=== PATIENT | female | born 1975 | race Caucasian/White ===

== ENCOUNTER 2024-03-18 09:18 | Emergency (ER) | payer BC, SELFPAY ==
[2024-03-18 09:20] VITALS: BP 129/64
--- NOTE | 2024-03-18 09:47 | ED.GENMED ---
History of Present Illness
General
Chief Complaint: Dizziness
Source: patient
Time Seen by Provider: 03/18/24 09:39
Travel History
Have you had any contact with someone who has COVID-19?: No
Do you have any symptoms of coronavirus? Fever > 100 degrees, chills, cough, shortness of breath, sore throat, loss of taste or smell, muscle aches, or headache?: No
History of Present Illness
History of Present Illness:
49-year-old female with no significant past medical history presenting to the emergency department for evaluation of sudden vertigo that she states started yesterday but upon awakening this morning symptoms were much more severe and constant
associated with nausea and vomiting. Patient states that the dizziness symptoms get significantly worse with any attempted movement and do somewhat improve when sitting still. She denies any headache, visual changes, focal weakness or numbness,
chest pain, shortness of breath or any other symptoms associated. Notes 1 previous history of vertigo but states today symptoms are much more severe. Patient did not take any medications prior to arrival to the emergency department. No other
concerns presently.
Past History
Past History
ED Past Medical History: Other (Anemia, portal vein thrombosis)
ED Past Surgical History: Cholecystectomy and Other (Gastric bypass/abdominoplasty )
Social History
Tobacco: Non-smoker
Alcohol: Occasional
Drug: None
Personal:
Living: with family
Employment: Employed
Family History
Family History: Other (Noncontributory)
Review of Systems
Review of Systems
All Other Systems: ROS reviewed and negative except as documented in HPI and ROS
Phy Exam
Physical Exam
Physical Exam:
GENERAL: Alert , appears uncomfortable, symptoms clearly elicited with any attempted movement
EYE: conjunctiva clear, pupils 3 mm bilateral, EOMI, significant leftward horizontal nystagmus noted during extraocular movements
NECK: Supple
ENT: o/p clr, mmm.
CARDIAC: Regular rate and rhythm
LUNGS: Clear breath sounds bilaterally, no acute respiratory distress, no wheezes/rales/rhonchi
NEUROLOGICAL: Alert and oriented x 3, moves all extremities
SKIN: Warm and dry, skin intact.
MUSCULOSKELETAL: well perfused.
PSYCH: Normal and appropriate interaction.
Scores
Heart Failure Risk
Heart Failure Risk Score: Not Applicable
Heart Score for Chest Pain Patients
STEMI patient?: Not applicable
Withdrawal Assessment of Alcohol
Withdrawal Assessment Completed?: Not applicable
Course
Orders/Labs/Results
Orders:
Orders
03/18/24 09:46
0.9% Sodium Chloride 1000 ml [Nss] 1,000 ml IV BOLUS
Meclizine [Antivert] 25 mg PO NOW STA
Ondansetron Injectable [Zofran] 4 mg IV NOW STA
Physical Therapy Consult [Pt Eval And Treat] Urgent
Treatment: vestibular treatment
Activity Level: Ambulate
03/18/24 09:55
Complete Blood Count/With Diff Urgent
03/18/24 10:23
Basic Metabolic Panel Urgent
03/18/24 12:27
CT Head W/o Iv Contrast Urgent
Comment:
Reason For Exam: vertigo
Abnormal Lab Results
03/18/24 03/18/24
09:55 10:23
RBC 3.93 L 10^6/uL
(4.20-5.40)
Hct 34.7 L %
(37.0-47.0)
MCH 31.3 H pg
(27.0-31.0)
Monocytes % 10.7 H %
(1.7-9.3)
Chloride 112 H mmol/L
(98-107)
03/18/24 09:55
03/18/24 10:23
Vital Signs
Initial and Last Documented VS:
Initial Vital Signs
Temp Pulse Resp BP Pulse Ox
98.0 F 57 18 129/64 100
03/18/24 09:20 03/18/24 09:20 03/18/24 09:20 03/18/24 09:20 03/18/24 09:20
Last Documented Vital Signs
Temp Pulse Resp BP Pulse Ox
98.0 F 74 18 112/74 98
03/18/24 09:20 03/18/24 14:47 03/18/24 14:47 03/18/24 14:47 03/18/24 14:47
MDM/Problems Addressed
Differential Diagnosis Includes:
BPPV, labyrinthitis, overall I do not have concern for central cause of vertigo
MDM/Problems Addressed:
49-year-old female present emergency department with sudden and worsening dizziness since awakening earlier this morning associated with nausea and vomiting. Symptoms are clearly made worse with any attempted movement. She does have a significant
leftward horizontal nystagmus on exam. Will treat with meclizine and Zofran. Fluids ordered. Will attempt for therapy consult for vestibular treatment. Anticipate discharge home if feeling improved.
*Radiology
Radiology exam reviewed: radiology read reviewed
*Pulse Oximetry
Patient hypoxic: no
*Critical Care Note
Total Time (30-74mins, 75-104mins- exclusive of procedures): Not Applicable
Comment
Comment:
Patient seen by physical therapy team. Patient did have some improvement of her vertiginous symptoms although still slightly present. CT of the head was ordered. I still suspect symptoms to be most likely peripheral in nature. Reassessment again
following CT imaging.
Patient Management
Discussion with other providers: Other (PT staff)
Escalation/DeEscalation of care consider admission/obs:
Patient feeling much improved following medications. CT of the head was ultimately negative for any acute pathology. Patient was able to ambulate without any ataxic gait. Aware of return precautions and otherwise stable for discharge home.
ED Attending Note
-
Portions of this chart may have been created with voice recognition software.� Occasional wrong word or��sound alike� substitutions may have occurred due to the inherent limitations of voice recognition software.
Discharge Plan
Departure
Patient Disposition: Home (Routine Discharge)
Date of Disposition: 03/18/24
Time of Disposition: 16:13
Patient with high blood pressure during this ER visit?: No
Discharge Problem:
Vertigo
Instructions: Vertigo (a Type of Dizziness) (DC)
Prescriptions:
New
meclizine 25 mg tablet
25 mg PO BID PRN (Reason: dizziness) Qty: 10 0RF
No Action
ondansetron 4 MG tablet,disintegrating
4 mg PO TIDPRN PRN (Reason: nausea/vomiting) Qty: 10 0RF
epinephrine [EpiPen] 0.3 MG/0.3/SYRINGE auto-injector
0.3 mg IM ONCE Qty: 1 1RF
ibuprofen 800 mg tablet
800 mg PO BIDPRN PRN (Reason: tooth ache)
dextroamphetamine-amphetamine 10 mg capsule,extended release 24hr
10 mg PO DAILY
cholecalciferol (vitamin D3) [Vitamin D3] 50 mcg (2,000 unit) Capsule
50 mcg PO DAILY
Wegovy 0.25 mg/0.5 mL Pen Injector
0.25 mg SC TU
famotidine 40 MG tablet
40 mg PO BIDPRN PRN (Reason: gerd)
Referrals:
Clemente Smallwood MD [Active] - (Neurology)
Ayad Gay MD [Active] - (ENT)
Aura Quinteros CRNP [Family Provider] -
Interventions
Interventions:
*ED COVID-19 Vaccine History Last Done: 03/18/24 09:20
ED- Neurological Assessment Last Done: 03/18/24 11:45
Discharge Date and Time
Print Language: MACEDONIAN
[2024-03-18] MEDS: NSS 1000 IV (09:56)
[2024-03-18] MEDS: ZOFRAN 4 MG IV (09:56)
[2024-03-18] MEDS: ANTIVERT 25 MG PO (09:59)
[2024-03-18 10:02] LABS: % Basophils 0.6 % (0-2); % Eosinophils 3.6 % (0-6); % Immature Granulocytes 0.2 % (0-0.5); % Lymphocytes 26.8 % (20.5-51.1); % Monocytes 10.7 % (1.7-9.3); % Neutrophils 58.1 % (42.2-75.2); Absolute Eosinophils 0.2 10^3/uL (0-0.7); Absolute Lymphocytes 1.4 10^3/uL (1.2-3.4); Absolute Monocytes 0.6 10^3/uL (0.1-0.6); Hematocrit 34.7 % (37.0-47.0); Hemoglobin 12.3 g/dL (12.0-16.0); Mean Corp Hgb Conc. 35.4 g/dL (33.0-37.0); Mean Corpuscular Hgb 31.3 pg (27.0-31.0); Mean Corpuscular Volume 88.3 fL (81.0-99.0); Mean Platelet Volume 9.7 fL (7.4-10.4); Nucleated Red Blood Cells % 0 %; Platelet Count 259 10^3/uL (130-400); Red Blood Cell Count 3.93 10^6/uL (4.20-5.40); Red Cell Dist. Width 12.4 % (11.5-14.5); White Blood Cell Count 5.2 10^3/uL (4.8-10.8)
[2024-03-18 10:42] LABS: Blood Urea Nitrogen 15 mg/dl (7-17); Calcium 8.6 mg/dl (8.4-10.2); Carbon Dioxide 22 mmol/L (22-30); Chloride 112 mmol/L (98-107); Glucose 90 mg/dl (70-99); Potassium 4.6 mmol/L (3.5-5.1); Sodium 136 mmol/L (135-145); eGFR > 60.00
[2024-03-18 13:57] VITALS: BP 119/64; O2SAT 100
[2024-03-18 14:47] VITALS: BP 112/74
== END 2024-03-18 16:27 | disposition home or self-care (01) ==
LOC: EMR 09:18
PROVIDERS: Physician Assistant Medical; EMERGENCY PHYSICIAN Emergency Medicine; FAMILY PHYSICIAN Nurse Practitioner
DX: R42 Dizziness and giddiness (principal); R11.2 Nausea with vomiting, unspecified; H55.09 Other forms of nystagmus; Z90.49 Acquired absence of other specified parts of digestive tract; D64.9 Anemia, unspecified; Z98.84 Bariatric surgery status; Z88.1 Allergy status to other antibiotic agents; Z91.018 Allergy to other foods; Z91.048 Other nonmedicinal substance allergy status
CPT/HCPCS: 99284; 96374; 96361; 70450; 80048; 85025

== ENCOUNTER → 2024-10-04 09:31 | Outpatient (REF) | payer BC, SELFPAY | LOC: HWRAD 09:31 | PROVIDERS: ATTENDING PHYSICIAN Nurse Practitioner | DX: E03.8 Other specified hypothyroidism (principal) | CPT/HCPCS: 76536 ==

== ENCOUNTER → 2025-02-26 14:21 | Outpatient (REF) | payer BC, SELFPAY | LOC: HWRAD 14:21 | PROVIDERS: ATTENDING PHYSICIAN Nurse Practitioner | DX: E04.2 Nontoxic multinodular goiter (principal) | CPT/HCPCS: 76536 ==

== ENCOUNTER 2025-06-01 17:44 | Emergency (ER) | payer BC, SELFPAY ==
[2025-06-01 17:47] VITALS: BP 138/73
[2025-06-01 18:19] LABS: Hematocrit 26.8 % (37.0-47.0); Hemoglobin 8.5 g/dL (12.0-16.0); Mean Corp Hgb Conc. 31.7 g/dL (33.0-37.0); Mean Corpuscular Volume 70.5 fL (81.0-99.0); Nucleated Red Blood Cells % 0 %; Platelet Count 342 10^3/uL (130-400); Red Cell Dist. Width 18.1 % (11.5-14.5)
[2025-06-01 18:31] LABS: ALT (SGPT) 15 U/L (0-35); AST (SGOT) 25 U/L (14-36); Albumin 4.1 g/dl (3.5-5.0); Alkaline Phosphatase 64 U/L (38-126); Blood Urea Nitrogen 12 mg/dl (7-17); Calcium 8.6 mg/dl (8.4-10.2); Carbon Dioxide 24 mmol/L (22-30); Chloride 112 mmol/L (98-107); Glucose 114 mg/dl (70-99); Lipase 113 U/L (23-300); Potassium 4.3 mmol/L (3.5-5.1); Sodium 137 mmol/L (135-145); Total Protein 7.0 g/dl (6.3-8.2); eGFR > 60.00
[2025-06-01] MEDS: CARAFATE SUSPENSION 1 GM PO (21:41)
[2025-06-01 21:43] VITALS: BP 122/70
--- NOTE | 2025-06-01 21:45 | ED.GENMED ---
History of Present Illness
General
Chief Complaint: Abdominal Pain
Time Seen by Provider: 06/01/25 21:09
History of Present Illness
History of Present Illness:
50-year-old female presents the emergency department for evaluation of intermittent upper abdominal pain for the past several days. Feels better after eating on occasion, however on other occasions feels worse after eating. Pain increased today
prompting her to come to the ED. Prior abdominal surgical 3 includes gastric bypass, cholecystectomy, bowel resection, and tummy tuck. No fevers or chills. No vomiting or diarrhea.
Past History
Past History
ED Past Medical History: Other (Anemia, portal vein thrombosis)
ED Past Surgical History: Cholecystectomy and Other (Gastric bypass/abdominoplasty )
Social History
Tobacco: Non-smoker
Alcohol: Occasional
Drug: None
Personal:
Living: with family
Employment: Employed
Family History
Family History: Other (Noncontributory)
Review of Systems
Review of Systems
Allergies reviewed?: Yes
All Other Systems: ROS reviewed and negative except as documented in HPI and ROS
Phy Exam
Physical Exam
Physical Exam:
GEN: Well appearing, NAD, WDWN
HEENT: Oral mucosa moist, no scleral icterus
Cardiac: Regular rate
Lung: No respiratory distress, no tachypnea
Abdomen: Soft, moderate epigastric tenderness, no rigidity or peritoneal signs
MSK: No gross deformity or injuries
Skin: Good color, no pallor or jaundice, no rashes
Neuro: AO x3, moves all extremities freely
Psych: Calm, cooperative
Course
Orders/Labs/Results
Orders:
Orders
06/01/25 18:11
Complete Blood Count/With Diff Urgent
Comprehensive Metabolic Panel Urgent
Lipase Urgent
06/01/25 21:29
Sucralfate Suspension [Carafate Suspension] 1 gm PO NOW STA
Abnormal Lab Results
06/01/25
18:11
RBC 3.80 L 10^6/uL
(4.20-5.40)
Hgb 8.5 L g/dL
(12.0-16.0)
Hct 26.8 L %
(37.0-47.0)
MCV 70.5 L fL
(81.0-99.0)
MCH 22.4 L pg
(27.0-31.0)
MCHC 31.7 L g/dL
(33.0-37.0)
RDW 18.1 H %
(11.5-14.5)
Absolute Monos (auto) 0.7 H 10^3/uL
(0.1-0.6)
Monocytes % 9.7 H %
(1.7-9.3)
Chloride 112 H mmol/L
(98-107)
Glucose 114 H mg/dl
(70-99)
06/01/25 18:11
06/01/25 18:11
Vital Signs
Initial and Last Documented VS:
Initial Vital Signs
Temp Pulse Resp BP Pulse Ox
97.4 F 51 16 138/73 100
06/01/25 17:47 06/01/25 17:47 06/01/25 17:47 06/01/25 17:47 06/01/25 17:47
Last Documented Vital Signs
Temp Pulse Resp BP Pulse Ox
97.4 F 54 16 110/63 100
06/01/25 17:47 06/01/25 22:03 06/01/25 22:03 06/01/25 22:00 06/01/25 22:01
MDM/Problems Addressed
MDM/Problems Addressed:
Suspect acute ulcer disease, she has a benign abdominal exam with only mild epigastric tenderness but reassuring labs. She has noted to be anemic but this is baseline for her, states that her hemoglobin was 'in the sevens' last week. Will start
patient on PPIs and refer to GI as an outpatient
*Pulse Oximetry
SaO2: 100
Oxygen Mode of Delivery: Room air
Patient hypoxic: no
*Critical Care Note
Total Time (30-74mins, 75-104mins- exclusive of procedures): Not Applicable
ED Attending Note
-
Portions of this chart may have been created with voice recognition software.� Occasional wrong word or��sound alike� substitutions may have occurred due to the inherent limitations of voice recognition software.
Discharge Plan
Departure
Patient Disposition: Home (Routine Discharge)
Date of Disposition: 06/01/25
Time of Disposition: 21:45
Patient with high blood pressure during this ER visit?: No
Discharge Problem:
Peptic ulcer
Instructions: Peptic ulcer - ED discharge instructions
Prescriptions:
New
pantoprazole 40 mg tablet,delayed release (DR/EC)
40 mg PO BID 14 Days Qty: 28 0RF
sucralfate [Carafate] 1 gram tablet
1 g PO AC Qty: 60 0RF
No Action
ondansetron 4 MG tablet,disintegrating
4 mg PO TIDPRN PRN (Reason: nausea/vomiting) Qty: 10 0RF
epinephrine [EpiPen] 0.3 MG/0.3/SYRINGE auto-injector
0.3 mg IM ONCE Qty: 1 1RF
ibuprofen 800 mg tablet
800 mg PO BIDPRN PRN (Reason: tooth ache)
dextroamphetamine-amphetamine 10 mg capsule,extended release 24hr
10 mg PO DAILY
cholecalciferol (vitamin D3) [Vitamin D3] 50 mcg (2,000 unit) Capsule
50 mcg PO DAILY
Wegovy 0.25 mg/0.5 mL Pen Injector
0.25 mg SC TU
famotidine 40 MG tablet
40 mg PO BIDPRN PRN (Reason: gerd)
meclizine 25 mg tablet
25 mg PO BID PRN (Reason: dizziness) Qty: 10 0RF
Interventions
Interventions:
*Risk Screen - Suicide Last Done: 06/01/25 17:47
*General Assessment Last Done: 06/01/25 17:47
*Neglect/Abuse Screening Last Done: 06/01/25 17:47
*ED- Fall Risk Assessment Last Done: 06/01/25 21:44
*ED COVID-19 Vaccine History Last Done: 06/01/25 21:44
*Nursing Disposition Last Done: 06/01/25 22:03
XL-Cihrqg-Cufmjmutfc Assessment Last Done: 06/01/25 21:44
Discharge Date and Time
Discharge Date/Time: 06/01/25 22:05
Print Language: CZECH
[2025-06-01 22:00] VITALS: BP 110/63
== END 2025-06-01 22:05 | disposition home or self-care (01) ==
LOC: EMR 17:44
PROVIDERS: Emergency Medicine; EMERGENCY PHYSICIAN Emergency Medicine; FAMILY PHYSICIAN Hospitalist
DX: K27.9 Peptic ulcer, site unspecified, unspecified as acute or chronic, without hemorrhage or perforation (principal); D64.9 Anemia, unspecified; Z90.49 Acquired absence of other specified parts of digestive tract; Z98.84 Bariatric surgery status
CPT/HCPCS: 99283; 80053; 83690; 85025